=== PATIENT | female | born 1975 | race Caucasian/White ===

== ENCOUNTER 2021-07-08 21:02 | Emergency (ER) | payer OTHER ==
--- NOTE | 2021-07-08 22:48 | ED Physician Documentation ---
History of Present Illness - Stated complaint Stated Complaint: DOG BITE ON UPPER LIP - Chief complaint Chief Complaint: Laceration - History obtained from History obtained from: Patient - Additonal information Additional information: 46yF, previously healthy, presents with 2 lacerations of upper lip and philtrum crossing jerri border after dog who is vaccinated against rabies bit her in the face. last tetanus shot 2 years ago. no other injury Review of Systems Skin: reports: Bite / sting PD PAST MEDICAL HISTORY - Present Medications Home Medications: Ambulatory Orders Medication Instructions Recorded Confirmed Amox/Clav 875/125 [Augmentin 1 tablet PO Q12H 7 Days #14 tablet 07/08/21 875/125 Tab] Lactobacillus Acidophilus 1 each PO QDAC #10 tablet 07/08/21 [Acidophilus] - Allergies Allergies/Adverse Reactions: Allergies Allergy/AdvReac Type Severity Reaction Status Date / Time No Known Drug Allergies Allergy Verified 07/08/21 21:09 PD ED PE NORMAL - Vitals Vital signs reviewed: Yes - General General: Alert and oriented X 3, No acute distress, Well developed/nourished - HEENT HEENT: Atraumatic, PERRL, EOMI, Moist mucous membranes, Pharynx benign, Dentition benign, Other (1cm laceration of L philtrum just barely crossing jerri border. 1.5cm lac just medial to this, crossing jerri border of upper lip) - Neuro Neuro: No motor deficit, No sensory deficit - Psych Psych: Normal mood, Normal affect Results - Vitals Vitals: Vital Signs - 24 hr 07/08/21 07/08/21 21:09 21:13 Temperature 36.7 C Heart Rate 86 Respiratory 18 22 Rate Blood Pressure 132/84 H O2 Saturation 100 Oxygen O2 Source Room air Procedures - Laceration (location) Face Wound type: Linear, Irregular Neurovascular status: Sensory intact, Motor intact, Vascular intact Anesthesia: Lidocaine 1% Wound preparation: Irrigated copiously NS, Wound explored, To the base, Multiple flaps aligned Deep layer closure: Vicryl, size #-0 - enter number (4), # sutures - enter number (2) Skin layer closure: Nylon (8), Size #-0 - enter number (6), Sutures - enter # (8) Other: Patient tolerated well, No complications, Neurovascular intact, Dressing applied, Tetanus UTD PD MEDICAL DECISION MAKING - ED course ED course: 46yF presents with 2 lacerations of upper lip crossing jerri border after dog who is vaccinated against rabies bit her in the face. Offered to refer her to plastics given the cosmetic sensitivity of the area but patient stated she would like it repaired here. Lacs repaired without complication. Return precautions given and referral provided to plastics/OMFS. Departure - Departure Disposition: 01 Home, Self Care Clinical Impression: Dog bite Condition: Good Instructions: ED Bite Animal General, ED Laceration All Follow-Up: Yaya Pena DDS [Provider Admit Priv/Credential] - Prescriptions: Lactobacillus Acidophilus [Acidophilus] 1 each PO QDAC #10 tablet Amox/Clav 875/125 [Augmentin 875/125 Tab] 1 tablet PO Q12H 7 Days #14 tablet Comments: You were seen in the emergency department for cuts from a dog bite. 8 stitches were placed that should be taken out in 3-5 days. You also should follow up for a wound check in 24 to 48 hours, ideally with a plastic surgeon or oral/maxillofacial surgeon. Dr. Yaya Pena is located on [facility], and I have enclosed contact information for [place] as well if you decide to go that route. Please monitor for signs of infection and return to the ED if you have any other concerns. [facility] [place] [email or web address], [place] [address] ~46.4 nc
[2021-07-08] MEDS ORDERED: IBUPROFEN 400 MG TABLET PO STA (23:02)
[2021-07-08 23:10] VITALS: BP 125/85
== END 2021-07-08 23:10 | disposition home or self-care (01) ==
LOC: ED 21:02
DX: S01.511A Laceration without foreign body of lip, initial encounter (principal); W54.0XXA Bitten by dog, initial encounter; Y93.89 Activity, other specified
CPT/HCPCS: 12011; 99281; 99282; A9270